=== PATIENT | female | born 1960 | race Caucasian/White ===

== ENCOUNTER → 2016-06-03 | Outpatient (CLI) | payer BC ==
--- NOTE | 2016-06-05 08:10 | MM ---
Reason for exam: screening (asymptomatic). Last mammogram was performed 1 year and 3 months ago. History: Patient is postmenopausal and is nulliparous. Excisional biopsy of the left breast, 1995. Took hormonal contraceptives for 3 years beginning at age 41. Took estrogen for 3 years 8 months beginning at age 43. Took progesterone for 3 years 8 months beginning at age 43. Physical Findings: A clinical breast exam by your physician is recommended on an annual basis and results should be correlated with mammographic findings. MG Screening Mammo w CAD Bilateral CC and MLO view(s) were taken. Prior study comparison: March 15, 2015, bilateral MG screening mammo w CAD. February 01, 2014, bilateral MG screening mammo w CAD. November 18, 2012, bilateral digital screening mammo w/CAD. There are scattered fibroglandular densities. There is chronic nodularity in the left breast. No significant changes when compared with prior studies. ASSESSMENT: Negative, BI-RAD 1 RECOMMENDATION: Routine screening mammogram of both breasts in 1 year.
== END ==
LOC: RADMAMWWP 14:13
PROVIDERS: ATTEND Obstetrics & Gynecology
DX: Z12.31 Encounter for screening mammogram for malignant neoplasm of breast (principal)

== ENCOUNTER → 2017-08-13 | Outpatient (CLI) | payer BC ==
--- NOTE | 2017-08-16 07:57 | MM ---
Reason for exam: screening (asymptomatic). Last mammogram was performed 1 year and 2 months ago. History: Patient is postmenopausal and is nulliparous. Excisional biopsy of the left breast, 1995. Took hormonal contraceptives for 3 years beginning at age 41. Took estrogen for 3 years 8 months beginning at age 43. Took progesterone for 3 years 8 months beginning at age 43. Physical Findings: A clinical breast exam by your physician is recommended on an annual basis and results should be correlated with mammographic findings. MG Screening Mammo w CAD Bilateral CC and MLO view(s) were taken. Prior study comparison: June 03, 2016, bilateral MG screening mammo w CAD. March 15, 2015, bilateral MG screening mammo w CAD. There are scattered fibroglandular densities. There is no discrete abnormality. ASSESSMENT: Benign, BI-RAD 2 RECOMMENDATION: Routine screening mammogram of both breasts in 1 year.
== END | disposition home or self-care (01) ==
LOC: RADMAMWWP 08:44
PROVIDERS: ATTEND Obstetrics & Gynecology
DX: Z12.31 Encounter for screening mammogram for malignant neoplasm of breast (principal)
CPT/HCPCS: 77067

== ENCOUNTER → 2019-06-19 | Outpatient (CLI) | payer OTHER ==
--- NOTE | 2019-06-19 16:47 | NM ---
EXAMINATION TYPE: NM bone/joint limited DATE OF EXAM: 06/19/2019 COMPARISON: Plain film 06/13/2019 HISTORY: Sprain of ligament of the thoracic spine TECHNIQUE: After the intravenous administration of 22.2 mCi Tc 99m MDP. Images acquired 3.25 hours post injection. Multiple views of spine are submitted. There is no abnormal uptake within the visualized osseous structures to suggest acute process. Soft t issue uptake is normal. Mild uptake at the costovertebral angle on the right at approximately T11 may be indicative of some underlying arthropathy. Anterior bridging osteophytes appear flowing with rela tive preservation of disc space on plain film suggesting diffuse idiopathic skeletal hyperostosis. IMPRESSION: No acute osseous abnormality. There is thoracic spondylosis. Arthropathy suspected consta nt vertebral junction as described. Additional findings above.
== END | disposition home or self-care (01) ==
LOC: RADNMMAIN 09:31
PROVIDERS: ATTEND Physical Medicine & Rehabilitation
DX: M47.814 Spondylosis without myelopathy or radiculopathy, thoracic region (principal)
CPT/HCPCS: 78300; A9503

== ENCOUNTER → 2019-07-03 | Outpatient (CLI) | payer OTHER ==
--- NOTE | 2019-07-03 15:35 | BD ---
EXAMINATION TYPE: Axial Bone Density DATE OF EXAM: 07/03/2019 COMPARISON: NONE CLINICAL HISTORY: Z 13.820 Height: 5 FT 3 IN Weight: 253 FRAX RISK QUESTIONS: Alcohol (3 or more units per day): NO Family History (Parent hip fracture): NO Glucocorticoids (More than 3mos): NO (Ex: prednisone, prednisolone, methylprednisolone, dexamethasone, and hydrocortisone). History of Fracture in Adulthood: NO Secondary Osteoporosis: 1. Type 1 Diabetes: NO 2. Hyperthyroidism: NO 3. Menopause before 45: NO 4. Malnutrition: NO 5. Chronic liver disease: NO Rheumatoid Arthritis: NO Current Tobacco Use: NO RISK FACTORS HISTORY OF: Active: YES Postmenopausal woman: AGE 45 Take estrogen and/or progesterone medications: SEV MONTHS NO LONGER TAKES MEDICATIONS: How Long: Additional Medications: NONE Additional History: EXAM MEASUREMENTS: Bone mineral densitometry was performed using the [employer] System. Bone mineral density as measured about the Lumbar spine is: ----- L1-L4(G/cm2): 1.180 T Score Values are as follows: ----- L2: -0.1 ----- L3: 0.8 ----- L4: 0.0 ----- L1-L4: 0.0 BASELINE Bone mineral density about the R hip (g/cm2): 0.958 Bone mineral density about the L hip (g/cm2): 0.951 T Score values are as follows: -----R Neck: -0.6 -----L Neck: -0.6 -----R Total: 1.0 -----L Total: 0.3 BASELINE IMPRESSION: Normal (Values between +1 and -1 indicate normal bone mass). Consider repeating this study in 5 year s or sooner if there is some new clinical indication. NOTE: T-SCORE=SD OF THE YOUNG ADULT MEAN.
--- NOTE | 2019-07-04 10:40 | MM ---
Reason for exam: screening (asymptomatic). Last mammogram was performed 1 year and 11 months ago. History: Patient is postmenopausal and is nulliparous. Excisional biopsy of the left breast, 1995. Took hormonal contraceptives for 3 years beginning at age 41. Took estrogen for 3 years 8 months beginning at age 43. Took progesterone for 3 years 8 months beginning at age 43. Physical Findings: A clinical breast exam by your physician is recommended on an annual basis and results should be correlated with mammographic findings. MG 3D Screening Mammo W/Cad Bilateral CC and MLO view(s) were taken. Prior study comparison: August 13, 2017, bilateral MG screening mammo w CAD. June 03, 2016, bilateral MG screening mammo w CAD. There are scattered fibroglandular densities. There is no discrete abnormality. No significant changes when compared with prior studies. ASSESSMENT: Negative, BI-RAD 1 RECOMMENDATION: Routine screening mammogram of both breasts in 1 year.
== END | disposition home or self-care (01) ==
LOC: RADMAMWWP 13:44
PROVIDERS: ATTEND Obstetrics & Gynecology
DX: Z12.31 Encounter for screening mammogram for malignant neoplasm of breast (principal); Z13.820 Encounter for screening for osteoporosis; Z78.0 Asymptomatic menopausal state
CPT/HCPCS: 77063; 77067; 77080

== ENCOUNTER → 2020-08-28 | Outpatient (CLI) | payer OTHER ==
--- NOTE | 2020-08-29 10:34 | MM ---
Reason for exam: screening (asymptomatic). Last mammogram was performed 1 year and 2 months ago. History: Patient is postmenopausal and is nulliparous. Excisional biopsy of the left breast, 1995. Took hormonal contraceptives for 3 years beginning at age 41. Took estrogen for 3 years 8 months beginning at age 43. Took progesterone for 3 years 8 months beginning at age 43. Physical Findings: A clinical breast exam by your physician is recommended on an annual basis and results should be correlated with mammographic findings. MG 3D Screening Mammo W/Cad Bilateral CC and MLO view(s) were taken. Prior study comparison: July 03, 2019, bilateral MG 3d screening mammo w/cad. August 13, 2017, bilateral MG screening mammo w CAD. There are scattered fibroglandular densities. There is no discrete abnormality. No significant changes when compared with prior studies. ASSESSMENT: Negative, BI-RAD 1 RECOMMENDATION: Routine screening mammogram of both breasts in 1 year.
== END | disposition home or self-care (01) ==
LOC: RADMAMWWP 09:10
PROVIDERS: ATTEND Obstetrics & Gynecology
DX: Z12.31 Encounter for screening mammogram for malignant neoplasm of breast (principal); Z78.0 Asymptomatic menopausal state
CPT/HCPCS: 77063; 77067

== ENCOUNTER → 2021-10-23 | Outpatient (CLI) | payer OTHER ==
--- NOTE | 2021-10-24 14:50 | MM ---
Reason for Exam: Screening (asymptomatic). Last mammogram was performed 1 year(s) and 2 month(s) ago. Patient History: Menarche at age 10. Patient has no children. Postmenopausal. Estrogen, starting at age 43 for 3 years, 8 months. Progesterone, starting at age 43 for 3 years, 8 months. Hormonal Contraceptives for 3 years from age 41 until age 44. 1996, Excisional Biopsy on the Left side. Risk Values: Chrissy 5 year model risk: 2.0%. NCI Lifetime model risk: 9.0%. Prior Study Comparison: 08/13/2017 Bilateral Screening Mammogram, [facility]. 07/03/2019 Bilateral Screening Mammogram, [facility]. 08/28/2020 Bilateral Screening Mammogram, [facility]. Tissue Density: There are scattered fibroglandular densities. Findings: Analyzed By CAD. No suspicious spiculated or lobular masses, cluster microcalcifications, architectural distortion, or other secondary signs of malignancy radiographically apparent. Overall Assessment: Benign, BI-RAD 2 Management: Screening Mammogram of both breasts in 1 year. A clinical breast exam by your physician is recommended on an annual basis and results should be correlated with mammographic findings. Electronically signed and approved by: Valdo Martinez D.O. Radiologis
== END | disposition home or self-care (01) ==
LOC: RADMAMWWP 08:03
PROVIDERS: ATTEND Obstetrics & Gynecology
DX: Z12.31 Encounter for screening mammogram for malignant neoplasm of breast (principal); Z78.0 Asymptomatic menopausal state
CPT/HCPCS: 77063; 77067

== ENCOUNTER → 2022-09-04 | Day surgery (SDC) | payer OTHER ==
[2022-09-01 10:21] VITALS: BMI 43.7
[~2022-09-04] MED LIST: IV FLUID CONTINUATION 1,000 ML IV ONE; LACTATED RINGERS 1,000 ML IV SCH; LIDOCAINE 1% (10MG/ML) FOR IV START INTRADERMA PRN; LIDOCAINE 2% INJ 20 MG/ML (2 ML VIAL) ONE; PROPOFOL 10 MG/ML 20 ML VIAL IV ONE
[2022-09-04 09:21] VITALS: RESP 16; TEMP 97.1
--- NOTE | 2022-09-04 11:00 | P.PCN ---
Date of Procedure: 09/04/22 Procedure(s) Performed: BRIEF HISTORY: Patient is a 61-year-old pleasant female scheduled for an elective colonoscopy as a part of evaluation of prior history of colon polyps. Her last colonoscopy was 5 years ago. PROCEDURE PERFORMED: Colonoscopy. PREOPERATIVE DIAGNOSIS: History of colon polyps: IV sedation per Anesthesia. PROCEDURE: After informed consent was obtained, the patient, was brought into the endoscopy unit. IV sedation was administered by Anesthesia under continuous monitoring. Digital rectal examination was normal. Initially the Olympus CF-160 flexible video colonoscope was then inserted in the rectum, gradually advanced into the cecum without any difficulty. Careful examination was performed as the scope was gradually being withdrawn. Ileocecal valve and the appendiceal orifice were visualized and appeared normal. Prep was excellent. Mucosa of the cecum, ascending colon, transverse colon, descending colon, sigmoid colon, and rectum appeared normal. Moderate sigmoid diverticulosis. Retroflexion was performed in the rectum and no lesions were seen. The patient tolerated the procedure well. IMPRESSION: Normal-appearing colon from rectum to cecum with no evidence of colorectal neoplasia . Moderate sigmoid diverticulosis. RECOMMENDATIONS: Findings of this examination were discussed with the patient as well as her family. She was advised to have a repeat screening colonoscopy in 10 years..
[2022-09-04 11:24] VITALS: BP 131/77; PULSE 71
== END ==
LOC: ORWHC2ENDO 08:55
PROVIDERS: ATTEND Internal Medicine Gastroenterology
DX: Z12.11 Encounter for screening for malignant neoplasm of colon (principal); K57.30 Diverticulosis of large intestine without perforation or abscess without bleeding; Z86.010 Personal history of colon polyps
CPT/HCPCS: 45378; J2704; J2001

== ENCOUNTER → 2022-11-23 | Outpatient (CLI) | payer OTHER ==
--- NOTE | 2022-11-25 07:55 | MM ---
Reason for Exam: Screening (asymptomatic). Last mammogram was performed 1 year(s) and 1 month(s) ago. Patient History: Menarche at age 10. Patient has no children. Postmenopausal. Estrogen, starting at age 43 for 3 years, 8 months. Progesterone, starting at age 43 for 3 years, 8 months. Hormonal Contraceptives for 3 years from age 41 until age 44. 1996, Excisional Biopsy on the Left side. Risk Values: Chrissy 5 year model risk: 2.1%. NCI Lifetime model risk: 8.7%. Prior Study Comparison: 06/03/2016 Bilateral Screening Mammogram, [facility]. 08/13/2017 Bilateral Screening Mammogram, [facility]. 07/03/2019 Bilateral Screening Mammogram, [facility]. 08/28/2020 Bilateral Screening Mammogram, [facility]. 10/23/2021 Bilateral MG 3D screening mammo w/cad, [facility]. Tissue Density: There are scattered fibroglandular densities. Findings: Analyzed By CAD. There is no suspicious group of microcalcifications or new suspicious mass in either breast. Chronic nodularity within the right breast. Overall Assessment: Benign, BI-RAD 2 Management: Screening Mammogram of both breasts in 1 year. A clinical breast exam by your physician is recommended on an annual basis and results should be correlated with mammographic findings. Note on Chrissy scores and lifetime risk: 1. A Chrissy score greater than 3% is considered moderate risk. If this is the case, consider specialist referral to assess eligibility for a risk reducing agent. If overall lifetime risk for the development of breast cancer is 20% or higher, the patient may qualify for future screening with alternating mammogram and breast MRI. Electronically signed and approved by: Luis Estrada D.O.
== END | disposition home or self-care (01) ==
LOC: RADMAMWWP 13:31
PROVIDERS: ATTEND Obstetrics & Gynecology
DX: Z12.31 Encounter for screening mammogram for malignant neoplasm of breast (principal); Z78.0 Asymptomatic menopausal state
CPT/HCPCS: 77063; 77067

== ENCOUNTER → 2024-01-04 | Outpatient (CLI) | payer OTHER | END | disposition home or self-care (01) | LOC: LABPRL 10:57 | PROVIDERS: ATTEND Family Medicine | DX: Z00.00 Encounter for general adult medical examination without abnormal findings (principal); E55.9 Vitamin D deficiency, unspecified; R73.9 Hyperglycemia, unspecified | CPT/HCPCS: 80053; 80061; 82306; 83036; 84443; 85027 ==

== ENCOUNTER → 2024-02-08 | Outpatient (CLI) | payer BC ==
--- NOTE | 2024-02-10 10:38 | MM ---
Reason for Exam: Screening (asymptomatic). Last mammogram was performed 1 year(s) and 2 month(s) ago. Patient History: Menarche at age 10. Patient has no children. Postmenopausal. Estrogen, starting at age 43 for 3 years, 8 months. Progesterone, starting at age 43 for 3 years, 8 months. Hormonal Contraceptives for 3 years from age 41 until age 44. 1995, Excisional Biopsy on the Left side. Risk Values: Chrissy 5 year model risk: 2.2%. NCI Lifetime model risk: 8.2%. Prior Study Comparison: 08/28/2020 Bilateral Screening Mammogram, [facility]. 10/23/2021 Bilateral MG 3D screening mammo w/cad, [facility]. 11/23/2022 Bilateral MG 3D screening mammo w/cad, [facility]. Tissue Density: The breasts are almost entirely fatty. Findings: Analyzed By CAD. Right breast: There is no suspicious group of microcalcifications or new suspicious mass. Left breast: There is no suspicious group of microcalcifications or new suspicious mass. Overall Assessment: Negative, BI-RAD 1 Management: Screening Mammogram of both breasts in [address] [facility] will attempt to contact patient to return for supplemental views and ultrasound if indicated. Patient should continue monthly self-breast exams. A clinical breast exam by your physician is recommended on an annual basis. This exam should not preclude additional follow-up of suspicious palpable abnormalities. Note on Chrissy scores and lifetime risk: 1. A Chrissy score greater than 3% is considered moderate risk. If this is the case, consider specialist referral to assess eligibility for a risk reducing agent. 2. If overall lifetime risk for the development of breast cancer is 20% or higher, the patient may qualify for future screening with alternating mammogram and breast MRI. [facility], , 02/10/2024 10:35 AM. Electronically signed and approved by: Jus Valle DO
== END | disposition home or self-care (01) ==
LOC: RADMAMWWP 12:50
PROVIDERS: ATTEND Family Medicine
DX: Z12.31 Encounter for screening mammogram for malignant neoplasm of breast
CPT/HCPCS: 77063; 77067